=== PATIENT | female | born 1930 | race Caucasian/White ===

== ENCOUNTER 2018-04-13 10:17 | Inpatient (IN) | payer MEDICARE, OTHER ==
[~2018-04-13] VITALS: Ht 157.5 cm; Wt 57.9 kg
[2018-04-13] VITALS (17 sets, daily range): BP systolic 111–155; BP diastolic 49–75
[~2018-04-13 10:17] MED LIST: ALEN35TA32 PO; ASPI81TA52 PO; CIPR-259 PO; DOCU-28 PO; GABA-532 PO; HYDR-3972 PO; ISOS60TA4 PO; LEVO100T9 PO; LOSA50TA3 PO; METR500T PO; OMEP20CA10 PO; SIMV20TA5 PO; WALKERFR TOP; ZOLP10TA5 PO
[2018-04-13 10:47] LABS: BASOPHILS % (AUTO) 0 % (0-1); EOSINOPHILS % (AUTO) 0 % (0-6); HEMATOCRIT 47.9 % (35.0-45.0); HEMOGLOBIN 16.4 g/dl (12.0-16.0); LYMPHOCYTES # (AUTO) 0.5 X10'3 (1.1-4.8); LYMPHOCYTES % (AUTO) 2.3 % (21-51); MEAN CORPUSCULAR HEMOGLOBIN 32.5 PG (27.0-31.0); MEAN CORPUSCULAR HGB CONC 34.1 % (33.0-36.5); MEAN CORPUSCULAR VOLUME 95.3 FL (78-98); MEAN PLATELET VOLUME 9.7 FL (7.4-10.4); MONOCYTES # (AUTO) 1.3 X10'3 (0-0.9); NEUTROPHILS # (AUTO) 20.2 X10'3 (1.8-7.7); NEUTROPHILS % (AUTO) 91.7 % (42-75); PLATELET COUNT 227 X10'3 (140-440); RED BLOOD COUNT 5.03 X10'6 (4.20-5.60); RED CELL DISTRIBUTION WIDTH 14.1 % (11.5-14.5); WHITE BLOOD COUNT 22.1 X10'3 (4.5-11.0)
[2018-04-13] MEDS ORDERED: ondansetron/PF 4mg/2ml inj IV ONE (10:50)
[2018-04-13] MEDS ORDERED: morphine 4 MG/ML inj SYRINge IV PRN ×4 (10:50→16:00)
[2018-04-13] MEDS ORDERED: normal saline 1000ML IV soln IVB ONE (10:50)
[2018-04-13 10:55] LABS: INR 1.1 INR; PROTHROMBIN TIME 11.6 SECONDS (9.0-12.0)
[2018-04-13 11:01] LABS: ALANINE AMINOTRANSFERASE 18 U/L (12-78); ALBUMIN/GLOBULIN RATIO 0.7 (1.1-1.5); ANION GAP 17 (8-16); ASPARTATE AMINO TRANSFERASE 24 U/L (10-37); BILIRUBIN,TOTAL 0.8 MG/DL (0.1-1.0); BLOOD UREA NITROGEN 109 MG/DL (7-18); BUN/CREATININE RATIO 16.9 (6.6-38.0); CALCIUM 8.9 MG/DL (8.5-10.1); CHLORIDE 95 MMOL/L (99-107); CREATININE 6.46 MG/DL (0.40-0.90); GLUCOSE 130 MG/DL (70-104); SODIUM 131 MMOL/L (135-145); TOTAL CARBON DIOXIDE 19.4 MMOL/L (24-32); TOTAL PROTEIN 7.3 G/DL (6.4-8.2); eGFR 6 ML/MIN
[2018-04-13 11:02] LABS: ALKALINE PHOSPHATASE 65 IU/L (46-116)
[2018-04-13 11:05] LABS: LIPASE 210 U/L (73-393)
[2018-04-13] MEDS ORDERED: iohexol 350MG/ML 100ml bottle IV ONE (11:05)
[2018-04-13 11:30] LABS: PLATELET ESTIMATE NORMAL; TOTAL CELLS COUNTED 100; TOXIC GRANULATION 1+; TOXIC VACUOLATION 2+
[2018-04-13] MEDS ORDERED: cefepime 2g/NS 100ml ADVANTAGE 100 ML IV ONE (12:10)
[2018-04-13 12:30] LABS: CLARITY,URINE SLIGHTLY CLOUDY (Clear); COLOR,URINE YELLOW (Yellow); GLUCOSE, URINE NEGATIVE (Neg); KETONES,URINE TRACE mg/dl (Neg); LEUKOCYTE ESTERASE ,URINE NEGATIVE (Neg); NITRITES, URINE NEGATIVE (Neg); OCCULT BLOOD,URINE TRACE-INTACT (Neg); PROTEIN,URINE TRACE mg/dl (Neg); UROBILINOGEN,URINE 0.2 E.U/dL (0.2-1.0)
[2018-04-13 12:32] LABS: UA COLLECTION TYPE CLN CATCH MIDSTREAM
[2018-04-13 12:43] LABS: BACTERIA,URINE FEW /HPF (Neg); MUCUS STRANDS FEW /LPF (Neg); RBC,URINE 0-2 /HPF (0-2); SQUAMOUS EPITHELIAL CELL,UR MANY /LPF (FEW); WBC,URINE 0-4 /HPF (0-4)
[2018-04-13] MEDS ORDERED: [UNRECOGNIZED DRUG - OTHER] PO (12:53)
[2018-04-13] MEDS ORDERED: sevoflurane 250ml liquid IH ONE (13:45)
[2018-04-13 13:56] LABS: OCCULT BLOOD STOOL NEGATIVE (Neg)
[2018-04-13] MEDS ORDERED: morphine 10mg/ml inj. ONE ×2 (13:56→13:57)
[2018-04-13] MEDS ORDERED: midazolam 2 mg/2 ml injection ONE (13:56)
[2018-04-13] MEDS: ringers solution, lacted 1,000 ML IV SCH ×2 (14:58→16:43)
[2018-04-13] MEDS ORDERED: hydrALAZINE 20mg/ml inj. IV PRN (15:00)
[2018-04-13] MEDS ORDERED: fentaNYL/PF 50MCG/1 ML 2ML syringe IV PRN ×3 (15:00→16:10)
[2018-04-13] MEDS ORDERED: ondansetron/PF 4mg/2ml inj IV PRN ×2 (15:00→16:00)
[2018-04-13] MEDS ORDERED: labetalol 20mg/4ml (5mg/ml) syringe IV PRN (15:00)
[2018-04-13] MEDS ORDERED: etomidate 2mg/ml inj. ONE (15:02)
[2018-04-13] MEDS ORDERED: MIDAZolam 5mg/5ml vial ONE (15:02)
[2018-04-13] MEDS ORDERED: rocuronium 10mg/ml inj IV ONE ×2 (15:02)
[2018-04-13] MEDS: sodium chloride 0.45% 1,000 ML IV SCH (15:56)
[2018-04-13] MEDS ORDERED: magnesium hydroxide 30ml (MOM) UD suspension PO PRN (16:00)
[2018-04-13] MEDS ORDERED: acetaminophen 325mg tablet PO PRN ×2 (16:00)
[2018-04-13] MEDS ORDERED: potassium Cl 20 mEq SR tablet PO PRN ×2 (16:00)
[2018-04-13] MEDS ORDERED: midazolam 100mg in NS 100ml 100 ML IV PRN (16:09)
[2018-04-13] MEDS ORDERED: midazolam 2 mg/2 ml injection IV ONE (16:10)
[2018-04-13 16:21] LABS: ABG BASE EXCESS -14.3 mmol/L (-2.0-3.0); ABG HCO3 11.3 mmol/L (22.0-26.0); ABG PCO2 (T) 26.4 mmHg (32.0-45.0); ABG PH (T) 7.251 (7.350-7.450); ABG PO2 (T) 219.7 mmHg (83-108); FCOHb 0.3 % (0.5-1.5); FMetHb 0.4 % (0.3-1.12); FO2Hb 98.3 % (94-100); MINUTE VOLUME 3 L/min; PEEP 5 cm H2O; RESPIRATORY RATE 8 b/min; RESPIRATORY RATE (OBSERVED) 8 b/min; TIDAL VOLUME 450 mL; TOTAL HEMOGLOBIN 11.2 G/dl (12.0-16.0)
[2018-04-13 16:41] LABS: OXYGEN SATURATION (MIXED VEN) 83.7 % (60-80); PO2 MIXED VENOUS (TEMP COR) 54.2 mmHg (35-46)
[2018-04-13] MEDS: pantoprazole 40 MG vial IV SCH (17:06)
[2018-04-13 17:36] LABS: PARTIAL THROMBOPLASTIN TIME 36 SECONDS (22-32)
[2018-04-13 17:43] LABS: ALBUMIN 2.1 G/DL (3.4-5.0); ALBUMIN/GLOBULIN RATIO 0.6 (1.1-1.5); ALKALINE PHOSPHATASE 51 IU/L (46-116); ANION GAP 12 (8-16); ASPARTATE AMINO TRANSFERASE 27 U/L (10-37); BILIRUBIN,TOTAL 0.8 MG/DL (0.1-1.0); BLOOD UREA NITROGEN 98 MG/DL (7-18); CALCIUM 7.2 MG/DL (8.5-10.1); CHLORIDE 102 MMOL/L (99-107); CREATININE 5.15 MG/DL (0.40-0.90); GLUCOSE 134 MG/DL (70-104); MAGNESIUM 1.9 MG/DL (1.5-2.4); PHOSPHORUS 5.4 MG/DL (2.3-4.5); SODIUM 132 MMOL/L (135-145); TOTAL CARBON DIOXIDE 18.2 MMOL/L (24-32); TOTAL PROTEIN 5.4 G/DL (6.4-8.2); eGFR 8 ML/MIN
[2018-04-13 18:02] LABS: ALANINE AMINOTRANSFERASE 16 U/L (12-78)
[2018-04-13 19:25] LABS: ABG OXYGEN SATURATION 98.7 % (95-98); ABG PCO2 (T) 28.3 mmHg (32.0-45.0); ABG PH (T) 7.305 (7.350-7.450); ABG PO2 (T) 132.5 mmHg (83-108); FCOHb 0.3 % (0.5-1.5); FMetHb 0.4 % (0.3-1.12); MINUTE VOLUME 6 L/min; PATIENT TEMPERATURE 35.9; PEEP 5 cm H2O; RESPIRATORY RATE 14 b/min; RESPIRATORY RATE (OBSERVED) 14 b/min; TIDAL VOLUME 400 mL; TOTAL HEMOGLOBIN 15.7 G/dl (12.0-16.0)
[2018-04-13] MEDS: K, MAG and/or Phos replacement - Verify level? MC SCH (19:34)
[2018-04-13] MEDS: FENTANYL-0.9 % NACL/PF 100 ML IV PRN (20:35)
[2018-04-14] VITALS (56 sets, daily range): BP systolic 77–140; BP diastolic 34–65
[2018-04-14] MEDS: NORepinephrine 8mg/ 250ml NS 250 ML IV SCH ×2 (01:35→16:08)
[2018-04-14] MEDS: levoFLOXACIN-Levaquin 250mg/D5 50 ML IV SCH ×2 (02:00)
[2018-04-14 02:46] LABS: BASOPHILS % (AUTO) 0.1 % (0-1); EOSINOPHILS % (AUTO) 0.2 % (0-6); HEMATOCRIT 43.3 % (35.0-45.0); HEMOGLOBIN 14.7 g/dl (12.0-16.0); LYMPHOCYTES # (AUTO) 0.5 X10'3 (1.1-4.8); LYMPHOCYTES % (AUTO) 3.8 % (21-51); MEAN CORPUSCULAR HEMOGLOBIN 32.8 PG (27.0-31.0); MEAN CORPUSCULAR VOLUME 96.4 FL (78-98); MEAN PLATELET VOLUME 9.8 FL (7.4-10.4); MONOCYTES # (AUTO) 0.5 X10'3 (0-0.9); NEUTROPHILS # (AUTO) 12.1 X10'3 (1.8-7.7); NEUTROPHILS % (AUTO) 91.9 % (42-75); PLATELET COUNT 207 X10'3 (140-440); RED BLOOD COUNT 4.49 X10'6 (4.20-5.60); RED CELL DISTRIBUTION WIDTH 14.7 % (11.5-14.5); WHITE BLOOD COUNT 13.1 X10'3 (4.5-11.0)
[2018-04-14 02:59] LABS: ALANINE AMINOTRANSFERASE 15 U/L (12-78); ALBUMIN 1.9 G/DL (3.4-5.0); ALBUMIN/GLOBULIN RATIO 0.6 (1.1-1.5); ALKALINE PHOSPHATASE 49 IU/L (46-116); ANION GAP 18 (8-16); ASPARTATE AMINO TRANSFERASE 20 U/L (10-37); BILIRUBIN,TOTAL 0.6 MG/DL (0.1-1.0); BLOOD UREA NITROGEN 97 MG/DL (7-18); BUN/CREATININE RATIO 17.5 (6.6-38.0); CALCIUM 7.3 MG/DL (8.5-10.1); CHLORIDE 101 MMOL/L (99-107); CREATININE 5.55 MG/DL (0.40-0.90); GLUCOSE 111 MG/DL (70-104); MAGNESIUM 1.7 MG/DL (1.5-2.4); PHOSPHORUS 5.2 MG/DL (2.3-4.5); SODIUM 133 MMOL/L (135-145); TOTAL PROTEIN 5.1 G/DL (6.4-8.2); eGFR 7 ML/MIN
[2018-04-14 03:01] LABS: TOTAL CARBON DIOXIDE 14.3 MMOL/L (24-32)
[2018-04-14] MEDS ORDERED: fluconazole-Diflucan 100MG/NS 50 ML IV ONE (03:12)
[2018-04-14 03:37] LABS: INR 1.2 INR; PARTIAL THROMBOPLASTIN TIME 38 SECONDS (22-32); PROTHROMBIN TIME 12.5 SECONDS (9.0-12.0)
[2018-04-14] MEDS: fluconazole-Diflucan 100MG/NS 50 ML IV SCH (03:37)
[2018-04-14 03:46] LABS: ABG BASE EXCESS -10.9 mmol/L (-2.0-3.0); ABG HCO3 13.1 mmol/L (22.0-26.0); ABG OXYGEN SATURATION 97.4 % (95-98); ABG PCO2 (T) 25.3 mmHg (32.0-45.0); ABG PH (T) 7.331 (7.350-7.450); ABG PO2 (T) 93.5 mmHg (83-108); FCOHb 0.3 % (0.5-1.5); FMetHb 0.3 % (0.3-1.12); FO2Hb 96.8 % (94-100); MINUTE VOLUME 7 L/min; PATIENT TEMPERATURE 36.8; PEEP 5 cm H2O; RESPIRATORY RATE 16 b/min; RESPIRATORY RATE (OBSERVED) 16 b/min; TIDAL VOLUME 450 mL; TOTAL HEMOGLOBIN 15.5 G/dl (12.0-16.0)
[2018-04-14] MEDS: sodium chloride 0.45% 1,000 ML IV SCH (05:44)
[2018-04-14] MEDS: K, MAG and/or Phos replacement - Verify level? MC SCH (06:39)
[2018-04-14] MEDS: lactobacillus rhamnosus 10,000 MMU CELLS/CAPSULE PO SCH ×3 (07:37→22:20)
[2018-04-14] MEDS: pantoprazole 40 MG vial IV SCH (07:39)
[2018-04-14 09:31] LABS: TOTAL PROTEIN,URINE RANDOM 36.2 MG/DL
[2018-04-14] MEDS ORDERED: CIPR500T5 PO (09:41)
[2018-04-14] MEDS ORDERED: METR500T4 PO (09:41)
[2018-04-14] MEDS: normal saline 1000ml 1,000 ML IV SCH ×2 (10:25→22:25)
[2018-04-14] MEDS ORDERED: vancomycin/NS 1 GM ADD-VANTAGE 250 ML IV ONE (10:25)
[2018-04-14] MEDS ORDERED: Dextrose 10%-water IV solution 1,000 ML IV PRN (14:09)
[2018-04-14] MEDS ORDERED: sodium phosphate inj. 15 MMOL in dextrose 5%-water 150 ML IV PRN (14:13)
[2018-04-14] MEDS ORDERED: sodium phosphate inj. 30 MMOL in dextrose 5%-water 250 ML IV PRN (14:13)
[2018-04-14] MEDS ORDERED: magnesium/D5W IVPB 100 ML IV PRN (14:15)
[2018-04-14] MEDS ORDERED: magnesium Cl slow-release 64mg tablet PO PRN (14:15)
[2018-04-14] MEDS ORDERED: Neutra Phos packet PO PRN (14:15)
[2018-04-14] MEDS ORDERED: potassium Cl 40MEQ/NS 500ml 500 ML IV PRN ×2 (14:15)
[2018-04-14] MEDS ORDERED: magnesium 4gm in 100ml NS 100 ML IV PRN (14:15)
[2018-04-14] MEDS ORDERED: potassium Cl 40MEQ/250ML bag 250 ML IV PRN ×2 (14:15)
[2018-04-14] MEDS ORDERED: potassium Cl 20 mEq SR tablet PO PRN ×2 (14:15)
[2018-04-14 17:47] LABS: ALANINE AMINOTRANSFERASE 24 U/L (12-78); ALBUMIN 1.9 G/DL (3.4-5.0); ALBUMIN/GLOBULIN RATIO 0.5 (1.1-1.5); ALKALINE PHOSPHATASE 58 IU/L (46-116); ANION GAP 24 (8-16); ASPARTATE AMINO TRANSFERASE 79 U/L (10-37); BILIRUBIN,TOTAL 0.6 MG/DL (0.1-1.0); BLOOD UREA NITROGEN 96 MG/DL (7-18); BUN/CREATININE RATIO 14.8 (6.6-38.0); CALCIUM 7.5 MG/DL (8.5-10.1); CHLORIDE 101 MMOL/L (99-107); CREATININE 6.47 MG/DL (0.40-0.90); GLUCOSE 118 MG/DL (70-104); MAGNESIUM 1.9 MG/DL (1.5-2.4); PHOSPHORUS 8.1 MG/DL (2.3-4.5); POTASSIUM 5.8 MMOL/L (3.5-5.1); PREALBUMIN 12.8 MG/DL (19-36); SODIUM 133 MMOL/L (135-145); TOTAL PROTEIN 5.5 G/DL (6.4-8.2); TRIGLYCERIDES 106 MG/DL (20-135); eGFR 6 ML/MIN
[2018-04-14 17:58] LABS: TOTAL CARBON DIOXIDE 8.5 MMOL/L (24-32)
[2018-04-14 18:51] LABS: ABG BASE EXCESS -22.1 mmol/L (-2.0-3.0); ABG HCO3 4.5 mmol/L (22.0-26.0); ABG OXYGEN SATURATION 97.3 % (95-98); ABG PCO2 (T) 14.1 mmHg (32.0-45.0); ABG PH (T) 7.124 (7.350-7.450); ABG PO2 (T) 113.4 mmHg (83-108); FCOHb 0.2 % (0.5-1.5); FMetHb 0.5 % (0.3-1.12); FO2Hb 96.6 % (94-100); MINUTE VOLUME 16 L/min; PATIENT TEMPERATURE 37.7; PEEP 5 cm H2O; RESPIRATORY RATE 16 b/min; RESPIRATORY RATE (OBSERVED) 33 b/min; TIDAL VOLUME 400 mL; TOTAL HEMOGLOBIN 15.7 G/dl (12.0-16.0)
[2018-04-14] MEDS: sodium bicarbonate (8.4%) inj. 150 MEQ in dextrose 5%-water 1,000 ML IV SCH (20:51)
[2018-04-14] MEDS ORDERED: vasopressin inj. 60 UNIT in normal saline 100ml IV soln 97 ML IV SCH (21:50)
[2018-04-14] MEDS: metroNIDAZOLE-Flagyl 500mg/NS 100 ML IV SCH (22:20)
[2018-04-14] MEDS: mineral oil/petrolatum ophthal oint EACHEYE SCH (22:20)
[2018-04-14] MEDS: fat emulsion IV 100 ML, MVI, adult No.4 with vit. K 10 ML, Trace element-5 inj. 1 ML in... IV SCH ×4 (22:25)
[2018-04-14] MEDS: normal saline 500ml IV soln 1,000 ML IV SCH ×3 (22:25→23:50)
[2018-04-15] VITALS (38 sets, daily range): BP systolic 66–148; BP diastolic 33–61
[2018-04-15] MEDS: normal saline 500ml IV soln 1,000 ML IV SCH (00:50)
[2018-04-15] MEDS: fluconazole-Diflucan 100MG/NS 50 ML IV SCH ×2 (01:13→20:51)
[2018-04-15] MEDS: mineral oil/petrolatum ophthal oint EACHEYE SCH ×4 (01:41→19:37)
[2018-04-15 03:19] LABS: BASOPHILS % (AUTO) 0 % (0-1); EOSINOPHILS % (AUTO) 0 % (0-6); HEMATOCRIT 40.2 % (35.0-45.0); HEMOGLOBIN 13.3 g/dl (12.0-16.0); LYMPHOCYTES # (AUTO) 0.7 X10'3 (1.1-4.8); LYMPHOCYTES % (AUTO) 2.2 % (21-51); MEAN CORPUSCULAR HEMOGLOBIN 32.7 PG (27.0-31.0); MEAN CORPUSCULAR HGB CONC 33.1 % (33.0-36.5); MEAN CORPUSCULAR VOLUME 98.6 FL (78-98); MEAN PLATELET VOLUME 9.6 FL (7.4-10.4); MONOCYTES # (AUTO) 1.1 X10'3 (0-0.9); MONOCYTES % (AUTO) 3.8 % (2-12); NEUTROPHILS # (AUTO) 27.9 X10'3 (1.8-7.7); PLATELET COUNT 186 X10'3 (140-440); RED BLOOD COUNT 4.08 X10'6 (4.20-5.60); RED CELL DISTRIBUTION WIDTH 15.6 % (11.5-14.5)
[2018-04-15 03:28] LABS: INR 1.9 INR; PARTIAL THROMBOPLASTIN TIME 50 SECONDS (22-32); PROTHROMBIN TIME 19.3 SECONDS (9.0-12.0)
[2018-04-15 03:35] LABS: WHITE BLOOD COUNT 29.6 X10'3 (4.5-11.0)
[2018-04-15 03:43] LABS: ALBUMIN 1.6 G/DL (3.4-5.0); ALBUMIN/GLOBULIN RATIO 0.5 (1.1-1.5); ALKALINE PHOSPHATASE 94 IU/L (46-116); ANION GAP 23 (8-16); BILIRUBIN,TOTAL 0.7 MG/DL (0.1-1.0); BLOOD UREA NITROGEN 97 MG/DL (7-18); BUN/CREATININE RATIO 14.4 (6.6-38.0); CALCIUM 6.6 MG/DL (8.5-10.1); CHLORIDE 100 MMOL/L (99-107); CREATININE 6.75 MG/DL (0.40-0.90); GLUCOSE 208 MG/DL (70-104); MAGNESIUM 2.1 MG/DL (1.5-2.4); PREALBUMIN 10.4 MG/DL (19-36); SODIUM 131 MMOL/L (135-145); TOTAL PROTEIN 4.7 G/DL (6.4-8.2); TRIGLYCERIDES 110 MG/DL (20-135); eGFR 6 ML/MIN
[2018-04-15 03:48] LABS: PHOSPHORUS 9.9 MG/DL (2.3-4.5)
[2018-04-15 03:50] LABS: POTASSIUM 6.6 MMOL/L (3.5-5.1); TOTAL CARBON DIOXIDE 8.1 MMOL/L (24-32)
[2018-04-15 04:01] LABS: TOTAL CELLS COUNTED 100
[2018-04-15 04:02] LABS: ANISOCYTOSIS 1+; PLATELET ESTIMATE NORMAL
[2018-04-15 04:37] LABS: ASPARTATE AMINO TRANSFERASE 2822 U/L (10-37)
[2018-04-15 04:38] LABS: ALANINE AMINOTRANSFERASE 544 U/L (12-78)
[2018-04-15 04:46] LABS: ABG BASE EXCESS -18.7 mmol/L (-2.0-3.0); ABG HCO3 6.8 mmol/L (22.0-26.0); ABG OXYGEN SATURATION 97.5 % (95-98); ABG PH (T) 7.216 (7.350-7.450); ABG PO2 (T) 107.5 mmHg (83-108); ALLEN'S TEST Positive; FCOHb 0.2 % (0.5-1.5); FMetHb 0.4 % (0.3-1.12); FO2Hb 96.9 % (94-100); MINUTE VOLUME 12 L/min; PATIENT TEMPERATURE 36.7; PEEP 5 cm H2O; RESPIRATORY RATE 16 b/min; RESPIRATORY RATE (OBSERVED) 27 b/min; TIDAL VOLUME 400 mL; TOTAL HEMOGLOBIN 14.2 G/dl (12.0-16.0)
[2018-04-15] MEDS: sodium bicarbonate (8.4%) inj. 150 MEQ in dextrose 5%-water 1,000 ML IV SCH (07:37)
[2018-04-15] MEDS: metroNIDAZOLE-Flagyl 500mg/NS 100 ML IV SCH ×2 (07:37→19:37)
[2018-04-15] MEDS: pantoprazole 40 MG vial IV SCH (07:37)
[2018-04-15] MEDS: NORepinephrine 8mg/ 250ml NS 250 ML IV SCH ×2 (07:54→19:36)
[2018-04-15] MEDS ORDERED: calcium chloride inj. 10,000 MG in normal saline 500ml IV soln 400 ML IV PRN ×2 (09:10→10:37)
[2018-04-15] MEDS ORDERED: magnesium 4gm in 100ml NS 100 ML IV PRN (09:10)
[2018-04-15] MEDS ORDERED: calcium chloride inj. 1,000 MG in normal saline 100ml IV soln 100 ML IV PRN (09:10)
[2018-04-15] MEDS ORDERED: CALCIUM GLUCONATE IV PRN (10:10)
[2018-04-15] MEDS ORDERED: NS IV PRN (10:10)
[2018-04-15] MEDS ORDERED: dextrose 50%-water 50ml dispensing syringe IV PRN ×2 (10:25)
[2018-04-15] MEDS ORDERED: glucagon, human recombinant 1mg kit SUBCUT PRN (10:25)
[2018-04-15] MEDS ORDERED: dextrose ORAL solution 15 GM/59 ML bottle PO PRN ×2 (10:25)
[2018-04-15] MEDS ORDERED: MESSAGE TO PHARMACY PO ONE (10:25)
[2018-04-15] MEDS ORDERED: insulin Lispro (HumaLOG) vial - multi-dose SQ SCH (10:25)
[2018-04-15] MEDS: K, MAG and/or Phos replacement - Verify level? MC SCH (10:28)
[2018-04-15] MEDS: lactobacillus rhamnosus 10,000 MMU CELLS/CAPSULE PO SCH ×2 (10:28→19:41)
[2018-04-15] MEDS: citrate dextrose 1000ml IV sol 1,000 ML IV PRN ×3 (10:29→21:07)
[2018-04-15] MEDS: Duosol 4k/NO Calcium 5,000 ML HE SCH ×5 (10:32→18:03)
[2018-04-15 10:41] LABS: ABG BASE EXCESS -14.2 mmol/L (-2.0-3.0); ABG HCO3 10.1 mmol/L (22.0-26.0); ABG OXYGEN SATURATION 96.1 % (95-98); ABG PCO2 (T) 21.4 mmHg (32.0-45.0); ABG PH (T) 7.293 (7.350-7.450); ABG PO2 (T) 83.9 mmHg (83-108); FCOHb 0.3 % (0.5-1.5); FMetHb 0.3 % (0.3-1.12); FO2Hb 95.5 % (94-100); MINUTE VOLUME 10 L/min; PEEP 5 cm H2O; RESPIRATORY RATE 16 b/min; RESPIRATORY RATE (OBSERVED) 24 b/min; TIDAL VOLUME 400 mL; TOTAL HEMOGLOBIN 14.2 G/dl (12.0-16.0)
[2018-04-15] MEDS: albumin (human) 25% 100 ML IV solution IV SCH ×2 (10:42→16:08)
[2018-04-15] MEDS ORDERED: vancomycin/NS 1 GM ADD-VANTAGE 250 ML IV PRN (12:50)
[2018-04-15] MEDS ORDERED: VANCOMYCIN LEVEL IV ONE (12:55)
[2018-04-15 13:26] LABS: HEMATOCRIT 32.3 % (35.0-45.0); HEMOGLOBIN 11.1 g/dl (12.0-16.0); MEAN CORPUSCULAR HGB CONC 34.3 % (33.0-36.5); MEAN PLATELET VOLUME 8.9 FL (7.4-10.4); PLATELET COUNT 120 X10'3 (140-440); RED BLOOD COUNT 3.37 X10'6 (4.20-5.60); RED CELL DISTRIBUTION WIDTH 14.8 % (11.5-14.5)
[2018-04-15 13:30] LABS: WHITE BLOOD COUNT 30.4 X10'3 (4.5-11.0)
[2018-04-15 13:35] LABS: ALBUMIN 2.6 G/DL (3.4-5.0); ANION GAP 16 (8-16); BLOOD UREA NITROGEN 90 MG/DL (7-18); BUN/CREATININE RATIO 15.7 (6.6-38.0); CALCIUM 6.3 MG/DL (8.5-10.1); CHLORIDE 100 MMOL/L (99-107); CREATININE 5.74 MG/DL (0.40-0.90); GLUCOSE 257 MG/DL (70-104); PHOSPHORUS 6.6 MG/DL (2.3-4.5); POTASSIUM 4.9 MMOL/L (3.5-5.1); SODIUM 130 MMOL/L (135-145); eGFR 7 ML/MIN
[2018-04-15 13:37] LABS: TOTAL CARBON DIOXIDE 13.7 MMOL/L (24-32)
[2018-04-15 13:44] LABS: HEMOGLOBIN A1C 5.9 % (4.5-6.2)
[2018-04-15] MEDS: normal saline 1000ml 1,000 ML IV SCH (13:50)
[2018-04-15 13:51] LABS: NUCLEATED RED BLOOD CELLS 1 /100WBC (0-0); TOTAL CELLS COUNTED 100
[2018-04-15 13:52] LABS: ANISOCYTOSIS 1+; PLATELET ESTIMATE DECREASED
[2018-04-15] MEDS: hydrocortisone sod succ/PF 100mg/2ml inj. IV SCH ×2 (14:12→19:39)
[2018-04-15] MEDS: insulin regular, human vial - multi-dose SQ SCH ×2 (14:15→19:32)
[2018-04-15 14:33] LABS: HEMATOCRIT 32.4 % (35.0-45.0); HEMOGLOBIN 11.1 g/dl (12.0-16.0); MEAN CORPUSCULAR HEMOGLOBIN 32.7 PG (27.0-31.0); MEAN CORPUSCULAR HGB CONC 34.2 % (33.0-36.5); MEAN CORPUSCULAR VOLUME 95.4 FL (78-98); PLATELET COUNT 125 X10'3 (140-440); RED BLOOD COUNT 3.39 X10'6 (4.20-5.60); RED CELL DISTRIBUTION WIDTH 15.2 % (11.5-14.5)
[2018-04-15 14:37] LABS: WHITE BLOOD COUNT 30.6 X10'3 (4.5-11.0)
[2018-04-15 14:45] LABS: ALBUMIN 2.7 G/DL (3.4-5.0); ANION GAP 17 (8-16); BLOOD UREA NITROGEN 88 MG/DL (7-18); CALCIUM 6.5 MG/DL (8.5-10.1); CHLORIDE 100 MMOL/L (99-107); CREATININE 5.49 MG/DL (0.40-0.90); GLUCOSE 263 MG/DL (70-104); PHOSPHORUS 6.2 MG/DL (2.3-4.5); POTASSIUM 4.9 MMOL/L (3.5-5.1); SODIUM 132 MMOL/L (135-145); TOTAL CARBON DIOXIDE 15.4 MMOL/L (24-32); eGFR 7 ML/MIN
[2018-04-15 14:47] LABS: TOTAL CELLS COUNTED 100
[2018-04-15 14:48] LABS: ANISOCYTOSIS 1+; PLATELET ESTIMATE DECREASED
[2018-04-15 15:15] LABS: BASOPHILS % (AUTO) 0.1 % (0-1); EOSINOPHILS % (AUTO) 0.1 % (0-6); HEMATOCRIT 32.7 % (35.0-45.0); LYMPHOCYTES # (AUTO) 0.4 X10'3 (1.1-4.8); LYMPHOCYTES % (AUTO) 1.2 % (21-51); MEAN CORPUSCULAR HEMOGLOBIN 32.6 PG (27.0-31.0); MEAN CORPUSCULAR HGB CONC 33.7 % (33.0-36.5); MEAN CORPUSCULAR VOLUME 96.7 FL (78-98); MEAN PLATELET VOLUME 8.9 FL (7.4-10.4); MONOCYTES # (AUTO) 0.7 X10'3 (0-0.9); MONOCYTES % (AUTO) 2.1 % (2-12); NEUTROPHILS % (AUTO) 96.5 % (42-75); PLATELET COUNT 121 X10'3 (140-440); RED BLOOD COUNT 3.38 X10'6 (4.20-5.60); RED CELL DISTRIBUTION WIDTH 14.9 % (11.5-14.5)
[2018-04-15 15:18] LABS: WHITE BLOOD COUNT 31.1 X10'3 (4.5-11.0)
[2018-04-15 15:29] LABS: ALBUMIN 2.6 G/DL (3.4-5.0); ANION GAP 16 (8-16); BLOOD UREA NITROGEN 83 MG/DL (7-18); BUN/CREATININE RATIO 16.5 (6.6-38.0); CALCIUM 6.5 MG/DL (8.5-10.1); CHLORIDE 100 MMOL/L (99-107); CREATININE 5.03 MG/DL (0.40-0.90); GLUCOSE 272 MG/DL (70-104); PHOSPHORUS 5.7 MG/DL (2.3-4.5); POTASSIUM 4.7 MMOL/L (3.5-5.1); SODIUM 132 MMOL/L (135-145); TOTAL CARBON DIOXIDE 16.1 MMOL/L (24-32); eGFR 8 ML/MIN
[2018-04-15 15:57] LABS: VANCOMYCIN,RANDOM 9.8 UG/ML
[2018-04-15 16:19] LABS: BASOPHILS % (AUTO) 0.1 % (0-1); EOSINOPHILS % (AUTO) 0.1 % (0-6); HEMATOCRIT 32.5 % (35.0-45.0); LYMPHOCYTES # (AUTO) 0.4 X10'3 (1.1-4.8); LYMPHOCYTES % (AUTO) 1.3 % (21-51); MEAN CORPUSCULAR HEMOGLOBIN 32.5 PG (27.0-31.0); MEAN CORPUSCULAR HGB CONC 33.8 % (33.0-36.5); MEAN CORPUSCULAR VOLUME 96.3 FL (78-98); MEAN PLATELET VOLUME 8.8 FL (7.4-10.4); MONOCYTES # (AUTO) 0.5 X10'3 (0-0.9); MONOCYTES % (AUTO) 1.7 % (2-12); NEUTROPHILS # (AUTO) 31.5 X10'3 (1.8-7.7); NEUTROPHILS % (AUTO) 96.8 % (42-75); PLATELET COUNT 119 X10'3 (140-440); RED BLOOD COUNT 3.37 X10'6 (4.20-5.60); RED CELL DISTRIBUTION WIDTH 15.2 % (11.5-14.5)
[2018-04-15 16:36] LABS: ALBUMIN 2.5 G/DL (3.4-5.0); ANION GAP 15 (8-16); BLOOD UREA NITROGEN 79 MG/DL (7-18); BUN/CREATININE RATIO 16.4 (6.6-38.0); CALCIUM 6.5 MG/DL (8.5-10.1); CHLORIDE 100 MMOL/L (99-107); CREATININE 4.83 MG/DL (0.40-0.90); GLUCOSE 277 MG/DL (70-104); PHOSPHORUS 5.3 MG/DL (2.3-4.5); POTASSIUM 4.6 MMOL/L (3.5-5.1); SODIUM 133 MMOL/L (135-145); TOTAL CARBON DIOXIDE 17.6 MMOL/L (24-32); eGFR 9 ML/MIN
[2018-04-15 16:45] LABS: WHITE BLOOD COUNT 32.5 X10'3 (4.5-11.0)
[2018-04-15] MEDS ORDERED: vancomycin/NS 1 GM ADD-VANTAGE 250 ML IV ONE (17:00)
[2018-04-15] MEDS: FENTANYL-0.9 % NACL/PF 100 ML IV PRN (17:45)
[2018-04-15] MEDS: insulin glargine (Lantus) pen - multi-dose SQ SCH (19:33)
[2018-04-15] MEDS: fat emulsion IV 100 ML, MVI, adult No.4 with vit. K 10 ML, Trace element-5 inj. 1 ML in... IV SCH ×4 (20:52)
[2018-04-15] MEDS: levoFLOXACIN-Levaquin 250mg/D5 50 ML IV SCH (21:27)
[2018-04-15 22:31] LABS: HEMATOCRIT 32.9 % (35.0-45.0); HEMOGLOBIN 11.2 g/dl (12.0-16.0); MEAN CORPUSCULAR HEMOGLOBIN 32.8 PG (27.0-31.0); MEAN CORPUSCULAR VOLUME 96.4 FL (78-98); MEAN PLATELET VOLUME 8.3 FL (7.4-10.4); PLATELET COUNT 105 X10'3 (140-440); RED BLOOD COUNT 3.42 X10'6 (4.20-5.60)
[2018-04-15 22:33] LABS: WHITE BLOOD COUNT 35.8 X10'3 (4.5-11.0)
[2018-04-15 22:55] LABS: ALBUMIN 3.2 G/DL (3.4-5.0); ALBUMIN/GLOBULIN RATIO 1.5 (1.1-1.5); ALKALINE PHOSPHATASE 196 IU/L (46-116); ANION GAP 15 (8-16); BILIRUBIN,TOTAL 1.7 MG/DL (0.1-1.0); BLOOD UREA NITROGEN 57 MG/DL (7-18); BUN/CREATININE RATIO 16.1 (6.6-38.0); CALCIUM 9.4 MG/DL (8.5-10.1); CHLORIDE 101 MMOL/L (99-107); CREATININE 3.53 MG/DL (0.40-0.90); GLUCOSE 235 MG/DL (70-104); MAGNESIUM 1.7 MG/DL (1.5-2.4); SODIUM 136 MMOL/L (135-145); TOTAL CARBON DIOXIDE 20.5 MMOL/L (24-32); TOTAL PROTEIN 5.4 G/DL (6.4-8.2); eGFR 12 ML/MIN
[2018-04-16] VITALS (24 sets, daily range): BP systolic 91–128; BP diastolic 43–58
[2018-04-16 00:09] LABS: ALANINE AMINOTRANSFERASE 1694 U/L (12-78); ASPARTATE AMINO TRANSFERASE > 7000 U/L (10-37)
[2018-04-16] MEDS: Duosol 4k/NO Calcium 5,000 ML HE SCH ×7 (01:51→20:13)
[2018-04-16] MEDS: albumin (human) 25% 100 ML IV solution IV SCH ×4 (01:54→23:39)
[2018-04-16] MEDS: mineral oil/petrolatum ophthal oint EACHEYE SCH ×4 (01:54→19:30)
[2018-04-16] MEDS: VANCOMYCIN LEVEL IV SCH (02:09)
[2018-04-16] MEDS: hydrocortisone sod succ/PF 100mg/2ml inj. IV SCH ×4 (02:18→19:30)
[2018-04-16] MEDS: citrate dextrose 1000ml IV sol 1,000 ML IV PRN ×5 (02:22→22:36)
[2018-04-16] MEDS: insulin regular, human vial - multi-dose SQ SCH ×4 (02:22→19:35)
[2018-04-16] MEDS: NS IV PRN ×2 (02:29→16:31)
[2018-04-16] MEDS: CALCIUM GLUCONATE IV PRN ×2 (02:29→16:31)
[2018-04-16 03:46] LABS: ABG BASE EXCESS -3.5 mmol/L (-2.0-3.0); ABG HCO3 20.2 mmol/L (22.0-26.0); ABG OXYGEN SATURATION 97.4 % (95-98); ABG PCO2 (T) 30.3 mmHg (32.0-45.0); ABG PH (T) 7.437 (7.350-7.450); FCOHb 0.3 % (0.5-1.5); FMetHb 0.2 % (0.3-1.12); FO2Hb 96.9 % (94-100); MINUTE VOLUME 8 L/min; PEEP 5 cm H2O; RESPIRATORY RATE 16 b/min; RESPIRATORY RATE (OBSERVED) 16 b/min; TIDAL VOLUME 400 mL; TOTAL HEMOGLOBIN 10.8 G/dl (12.0-16.0)
[2018-04-16 04:50] LABS: BASOPHILS % (AUTO) 0 % (0-1); EOSINOPHILS % (AUTO) 0 % (0-6); HEMATOCRIT 29.3 % (35.0-45.0); INR 2.6 INR; LYMPHOCYTES # (AUTO) 0.3 X10'3 (1.1-4.8); LYMPHOCYTES % (AUTO) 0.7 % (21-51); MEAN CORPUSCULAR HGB CONC 34.1 % (33.0-36.5); MEAN CORPUSCULAR VOLUME 96.7 FL (78-98); MEAN PLATELET VOLUME 9.2 FL (7.4-10.4); MONOCYTES # (AUTO) 0.6 X10'3 (0-0.9); MONOCYTES % (AUTO) 1.6 % (2-12); NEUTROPHILS # (AUTO) 34.8 X10'3 (1.8-7.7); NEUTROPHILS % (AUTO) 97.7 % (42-75); PLATELET COUNT 88 X10'3 (140-440); PROTHROMBIN TIME 26.2 SECONDS (9.0-12.0); RED BLOOD COUNT 3.03 X10'6 (4.20-5.60); RED CELL DISTRIBUTION WIDTH 14.8 % (11.5-14.5)
[2018-04-16 04:54] LABS: PARTIAL THROMBOPLASTIN TIME 77 SECONDS (22-32)
[2018-04-16 04:56] LABS: WHITE BLOOD COUNT 35.6 X10'3 (4.5-11.0)
[2018-04-16 05:07] LABS: ALBUMIN 3.6 G/DL (3.4-5.0); ALKALINE PHOSPHATASE 179 IU/L (46-116); ANION GAP 12 (8-16); BLOOD UREA NITROGEN 43 MG/DL (7-18); BUN/CREATININE RATIO 15.7 (6.6-38.0); CALCIUM 9.5 MG/DL (8.5-10.1); CHLORIDE 102 MMOL/L (99-107); CREATININE 2.74 MG/DL (0.40-0.90); GLUCOSE 178 MG/DL (70-104); MAGNESIUM 1.6 MG/DL (1.5-2.4); PHOSPHORUS 2.4 MG/DL (2.3-4.5); SODIUM 137 MMOL/L (135-145); TOTAL CARBON DIOXIDE 22.7 MMOL/L (24-32); TOTAL PROTEIN 5.4 G/DL (6.4-8.2); VANCOMYCIN,RANDOM 16.2 UG/ML; eGFR 16 ML/MIN
[2018-04-16 05:12] LABS: ALANINE AMINOTRANSFERASE 1340 U/L (12-78)
[2018-04-16 05:36] LABS: ASPARTATE AMINO TRANSFERASE 5909 U/L (10-37)
[2018-04-16] MEDS: K, MAG and/or Phos replacement - Verify level? MC SCH (06:43)
[2018-04-16 07:26] LABS: PLATELET ESTIMATE DECREASED; TOTAL CELLS COUNTED 100
[2018-04-16 07:28] LABS: ANISOCYTOSIS FEW; BURR CELLS 1+; TOXIC GRANULATION 2+; TOXIC VACUOLATION FEW
[2018-04-16 07:29] LABS: NUCLEATED RED BLOOD CELLS 1 /100WBC (0-0)
[2018-04-16] MEDS: pantoprazole 40 MG vial IV SCH (07:30)
[2018-04-16] MEDS: metroNIDAZOLE-Flagyl 500mg/NS 100 ML IV SCH ×2 (07:31→19:29)
[2018-04-16] MEDS: lactobacillus rhamnosus 10,000 MMU CELLS/CAPSULE PO SCH ×2 (07:37→19:31)
[2018-04-16] MEDS ORDERED: CALCIUM GLUCONATE IV PRN (10:10)
[2018-04-16] MEDS ORDERED: NS IV PRN (10:10)
[2018-04-16 10:14] LABS: HEMOGLOBIN 9.6 g/dl (12.0-16.0); MEAN CORPUSCULAR HEMOGLOBIN 33.1 PG (27.0-31.0); MEAN CORPUSCULAR HGB CONC 34.5 % (33.0-36.5); MEAN CORPUSCULAR VOLUME 96.1 FL (78-98); MEAN PLATELET VOLUME 8.5 FL (7.4-10.4); PLATELET COUNT 80 X10'3 (140-440); RED BLOOD COUNT 2.91 X10'6 (4.20-5.60); RED CELL DISTRIBUTION WIDTH 15.2 % (11.5-14.5)
[2018-04-16 10:29] LABS: WHITE BLOOD COUNT 34.7 X10'3 (4.5-11.0)
[2018-04-16 10:34] LABS: ALBUMIN 4.1 G/DL (3.4-5.0); ALBUMIN/GLOBULIN RATIO 2.4 (1.1-1.5); ALKALINE PHOSPHATASE 172 IU/L (46-116); ANION GAP 11 (8-16); BILIRUBIN,TOTAL 2.2 MG/DL (0.1-1.0); BLOOD UREA NITROGEN 35 MG/DL (7-18); BUN/CREATININE RATIO 15.5 (6.6-38.0); CALCIUM 10.3 MG/DL (8.5-10.1); CHLORIDE 100 MMOL/L (99-107); CREATININE 2.26 MG/DL (0.40-0.90); GLUCOSE 164 MG/DL (70-104); MAGNESIUM 3.1 MG/DL (1.5-2.4); POTASSIUM 3.8 MMOL/L (3.5-5.1); SODIUM 136 MMOL/L (135-145); TOTAL CARBON DIOXIDE 25.1 MMOL/L (24-32); TOTAL PROTEIN 5.8 G/DL (6.4-8.2); eGFR 21 ML/MIN
[2018-04-16 10:46] LABS: ALANINE AMINOTRANSFERASE 1139 U/L (12-78); ASPARTATE AMINO TRANSFERASE 5054 U/L (10-37)
[2018-04-16] MEDS: potassium Cl 20mEq/100mL bag 100 ML IV PRN ×2 (11:30→12:32)
[2018-04-16] MEDS: fat emulsion IV 100 ML, MVI, adult No.4 with vit. K 10 ML, Trace element-5 inj. 1 ML in... IV SCH ×4 (13:34)
[2018-04-16 16:23] LABS: HEMATOCRIT 29.6 % (35.0-45.0); HEMOGLOBIN 10.2 g/dl (12.0-16.0); MEAN CORPUSCULAR HEMOGLOBIN 32.9 PG (27.0-31.0); MEAN CORPUSCULAR HGB CONC 34.4 % (33.0-36.5); MEAN CORPUSCULAR VOLUME 95.6 FL (78-98); MEAN PLATELET VOLUME 8.4 FL (7.4-10.4); PLATELET COUNT 75 X10'3 (140-440); RED CELL DISTRIBUTION WIDTH 15.1 % (11.5-14.5)
[2018-04-16 16:27] LABS: WHITE BLOOD COUNT 37.2 X10'3 (4.5-11.0)
[2018-04-16 16:37] LABS: PARTIAL THROMBOPLASTIN TIME 77 SECONDS (22-32)
[2018-04-16 16:49] LABS: ALBUMIN 4.3 G/DL (3.4-5.0); ALBUMIN/GLOBULIN RATIO 2.4 (1.1-1.5); ALKALINE PHOSPHATASE 190 IU/L (46-116); ANION GAP 14 (8-16); BILIRUBIN,TOTAL 2.3 MG/DL (0.1-1.0); BLOOD UREA NITROGEN 30 MG/DL (7-18); BUN/CREATININE RATIO 16.3 (6.6-38.0); CALCIUM 9.9 MG/DL (8.5-10.1); CHLORIDE 99 MMOL/L (99-107); CREATININE 1.84 MG/DL (0.40-0.90); GLUCOSE 166 MG/DL (70-104); MAGNESIUM 2.3 MG/DL (1.5-2.4); POTASSIUM 4.4 MMOL/L (3.5-5.1); SODIUM 137 MMOL/L (135-145); TOTAL CARBON DIOXIDE 23.8 MMOL/L (24-32); TOTAL PROTEIN 6.1 G/DL (6.4-8.2); eGFR 26 ML/MIN
[2018-04-16 16:59] LABS: ALANINE AMINOTRANSFERASE 1072 U/L (12-78)
[2018-04-16 17:00] LABS: ASPARTATE AMINO TRANSFERASE 3631 U/L (10-37)
[2018-04-16] MEDS: insulin glargine (Lantus) pen - multi-dose SQ SCH (19:36)
[2018-04-16] MEDS: fluconazole-Diflucan 100MG/NS 50 ML IV SCH (20:51)
[2018-04-16] MEDS: levoFLOXACIN-Levaquin 250mg/D5 50 ML IV SCH (21:32)
[2018-04-16 23:54] LABS: HEMATOCRIT 29.2 % (35.0-45.0); HEMOGLOBIN 9.9 g/dl (12.0-16.0); MEAN CORPUSCULAR HEMOGLOBIN 32.9 PG (27.0-31.0); MEAN CORPUSCULAR HGB CONC 34.1 % (33.0-36.5); MEAN CORPUSCULAR VOLUME 96.6 FL (78-98); MEAN PLATELET VOLUME 8.9 FL (7.4-10.4); PLATELET COUNT 67 X10'3 (140-440); RED BLOOD COUNT 3.02 X10'6 (4.20-5.60); RED CELL DISTRIBUTION WIDTH 14.7 % (11.5-14.5)
[2018-04-16 23:59] LABS: WHITE BLOOD COUNT 36.7 X10'3 (4.5-11.0)
[2018-04-17] VITALS (24 sets, daily range): BP systolic 95–144; BP diastolic 40–57
[2018-04-17 00:15] LABS: ALANINE AMINOTRANSFERASE 869 U/L (12-78); ALBUMIN 4.5 G/DL (3.4-5.0); ALBUMIN/GLOBULIN RATIO 2.6 (1.1-1.5); ALKALINE PHOSPHATASE 190 IU/L (46-116); ANION GAP 14 (8-16); BILIRUBIN,TOTAL 2.4 MG/DL (0.1-1.0); BLOOD UREA NITROGEN 28 MG/DL (7-18); BUN/CREATININE RATIO 16.1 (6.6-38.0); CALCIUM 10.5 MG/DL (8.5-10.1); CHLORIDE 98 MMOL/L (99-107); CREATININE 1.74 MG/DL (0.40-0.90); GLUCOSE 133 MG/DL (70-104); SODIUM 137 MMOL/L (135-145); TOTAL CARBON DIOXIDE 24.9 MMOL/L (24-32); TOTAL PROTEIN 6.2 G/DL (6.4-8.2); eGFR 28 ML/MIN
[2018-04-17 00:30] LABS: ASPARTATE AMINO TRANSFERASE 2628 U/L (10-37)
[2018-04-17] MEDS ORDERED: SODIUM PHOSPHATE IN D5W 250 ML IV ONE (01:24)
[2018-04-17] MEDS: insulin regular, human vial - multi-dose SQ SCH ×4 (01:50→19:44)
[2018-04-17] MEDS: hydrocortisone sod succ/PF 100mg/2ml inj. IV SCH ×4 (01:57→19:33)
[2018-04-17] MEDS: mineral oil/petrolatum ophthal oint EACHEYE SCH ×4 (01:58→19:33)
[2018-04-17] MEDS: sodium phosphate inj. 30 MMOL in normal saline 250ml IV soln 250 ML IV PRN (02:03)
[2018-04-17] MEDS: VANCOMYCIN LEVEL IV SCH (02:09)
[2018-04-17] MEDS: Duosol 4k/NO Calcium 5,000 ML HE SCH ×5 (03:10→18:50)
[2018-04-17 03:36] LABS: ABG BASE EXCESS 0.6 mmol/L (-2.0-3.0); ABG HCO3 24.2 mmol/L (22.0-26.0); ABG OXYGEN SATURATION 96.9 % (95-98); ABG PCO2 (T) 34.5 mmHg (32.0-45.0); ABG PH (T) 7.463 (7.350-7.450); ABG PO2 (T) 86.6 mmHg (83-108); FCOHb 0.3 % (0.5-1.5); FMetHb 0.1 % (0.3-1.12); FO2Hb 96.5 % (94-100); MINUTE VOLUME 8 L/min; PATIENT TEMPERATURE 36.6; PEEP 5 cm H2O; RESPIRATORY RATE 16 b/min; RESPIRATORY RATE (OBSERVED) 17 b/min; TIDAL VOLUME 400 mL; TOTAL HEMOGLOBIN 9.8 G/dl (12.0-16.0)
[2018-04-17] MEDS: citrate dextrose 1000ml IV sol 1,000 ML IV PRN ×4 (03:37→19:32)
[2018-04-17 04:04] LABS: BASOPHILS % (AUTO) 0 % (0-1); EOSINOPHILS % (AUTO) 0 % (0-6); HEMATOCRIT 26.3 % (35.0-45.0); HEMOGLOBIN 9.1 g/dl (12.0-16.0); LYMPHOCYTES # (AUTO) 0.6 X10'3 (1.1-4.8); LYMPHOCYTES % (AUTO) 1.6 % (21-51); MEAN CORPUSCULAR HEMOGLOBIN 33.2 PG (27.0-31.0); MEAN CORPUSCULAR HGB CONC 34.7 % (33.0-36.5); MEAN CORPUSCULAR VOLUME 95.6 FL (78-98); MEAN PLATELET VOLUME 7.9 FL (7.4-10.4); MONOCYTES # (AUTO) 0.9 X10'3 (0-0.9); MONOCYTES % (AUTO) 2.4 % (2-12); NEUTROPHILS # (AUTO) 33.8 X10'3 (1.8-7.7); PLATELET COUNT 63 X10'3 (140-440); RED BLOOD COUNT 2.75 X10'6 (4.20-5.60); RED CELL DISTRIBUTION WIDTH 15.3 % (11.5-14.5)
[2018-04-17 04:08] LABS: WHITE BLOOD COUNT 35.2 X10'3 (4.5-11.0)
[2018-04-17 04:17] LABS: INR 1.9 INR; PROTHROMBIN TIME 18.8 SECONDS (9.0-12.0)
[2018-04-17 04:30] LABS: ALANINE AMINOTRANSFERASE 760 U/L (12-78); ALBUMIN 4.9 G/DL (3.4-5.0); ALBUMIN/GLOBULIN RATIO 3.1 (1.1-1.5); ALKALINE PHOSPHATASE 175 IU/L (46-116); ANION GAP 16 (8-16); BILIRUBIN,TOTAL 2.3 MG/DL (0.1-1.0); BLOOD UREA NITROGEN 27 MG/DL (7-18); BUN/CREATININE RATIO 16.3 (6.6-38.0); CALCIUM 10.8 MG/DL (8.5-10.1); CHLORIDE 96 MMOL/L (99-107); CREATININE 1.66 MG/DL (0.40-0.90); GLUCOSE 135 MG/DL (70-104); PHOSPHORUS 1.8 MG/DL (2.3-4.5); POTASSIUM 3.7 MMOL/L (3.5-5.1); SODIUM 138 MMOL/L (135-145); TOTAL CARBON DIOXIDE 26.1 MMOL/L (24-32); TOTAL PROTEIN 6.5 G/DL (6.4-8.2); VANCOMYCIN,RANDOM 7.3 UG/ML; eGFR 29 ML/MIN
[2018-04-17 04:37] LABS: ASPARTATE AMINO TRANSFERASE 1837 U/L (10-37)
[2018-04-17 04:44] LABS: PARTIAL THROMBOPLASTIN TIME 81 SECONDS (22-32)
[2018-04-17] MEDS: NS IV PRN ×2 (05:11→18:49)
[2018-04-17] MEDS: CALCIUM GLUCONATE IV PRN ×2 (05:11→18:49)
[2018-04-17] MEDS: fat emulsion IV 100 ML, MVI, adult No.4 with vit. K 10 ML, Trace element-5 inj. 1 ML in... IV SCH ×8 (05:48→21:44)
[2018-04-17 06:11] LABS: TOTAL CELLS COUNTED 100
[2018-04-17 06:12] LABS: ANISOCYTOSIS 1+; PLATELET ESTIMATE DECREASED; TARGET CELLS 1+
[2018-04-17] MEDS ORDERED: vancomycin/NS 1 GM ADD-VANTAGE 250 ML IV ONE (07:05)
[2018-04-17] MEDS: lactobacillus rhamnosus 10,000 MMU CELLS/CAPSULE PO SCH ×2 (07:42→19:33)
[2018-04-17] MEDS: pantoprazole 40 MG vial IV SCH (07:42)
[2018-04-17] MEDS: metroNIDAZOLE-Flagyl 500mg/NS 100 ML IV SCH ×2 (07:43→19:32)
[2018-04-17] MEDS: albumin (human) 25% 100 ML IV solution IV SCH ×2 (07:45→16:23)
[2018-04-17] MEDS: K, MAG and/or Phos replacement - Verify level? MC SCH (08:00)
[2018-04-17 10:24] LABS: HEMATOCRIT 26.1 % (35.0-45.0); HEMOGLOBIN 8.9 g/dl (12.0-16.0); MEAN CORPUSCULAR HGB CONC 34.3 % (33.0-36.5); MEAN CORPUSCULAR VOLUME 96.1 FL (78-98); MEAN PLATELET VOLUME 8.3 FL (7.4-10.4); PLATELET COUNT 60 X10'3 (140-440); RED BLOOD COUNT 2.71 X10'6 (4.20-5.60); RED CELL DISTRIBUTION WIDTH 15.2 % (11.5-14.5)
[2018-04-17 10:34] LABS: WHITE BLOOD COUNT 37.4 X10'3 (4.5-11.0)
[2018-04-17 10:46] LABS: ALANINE AMINOTRANSFERASE 666 U/L (12-78); ALBUMIN 5.3 G/DL (3.4-5.0); ALBUMIN/GLOBULIN RATIO 3.1 (1.1-1.5); ALKALINE PHOSPHATASE 171 IU/L (46-116); ANION GAP 13 (8-16); BILIRUBIN,TOTAL 2.4 MG/DL (0.1-1.0); BLOOD UREA NITROGEN 28 MG/DL (7-18); BUN/CREATININE RATIO 20.1 (6.6-38.0); CALCIUM 10.3 MG/DL (8.5-10.1); CHLORIDE 97 MMOL/L (99-107); CREATININE 1.39 MG/DL (0.40-0.90); GLUCOSE 127 MG/DL (70-104); MAGNESIUM 1.7 MG/DL (1.5-2.4); POTASSIUM 3.4 MMOL/L (3.5-5.1); SODIUM 137 MMOL/L (135-145); TOTAL CARBON DIOXIDE 26.9 MMOL/L (24-32); eGFR 36 ML/MIN
[2018-04-17 10:47] LABS: ASPARTATE AMINO TRANSFERASE 1447 U/L (10-37)
[2018-04-17] MEDS ORDERED: potassium Cl 40MEQ/250ML bag 250 ML IV PRN (12:10)
[2018-04-17 13:48] LABS: PHOSPHORUS 2.3 MG/DL (2.3-4.5)
[2018-04-17] MEDS: normal saline 1000ml 1,000 ML IV SCH (13:50)
[2018-04-17] MEDS ORDERED: calcium chloride inj. 10,000 MG in normal saline 500ml IV soln 400 ML IV PRN (16:00)
[2018-04-17 16:31] LABS: HEMATOCRIT 29.7 % (35.0-45.0); MEAN CORPUSCULAR HEMOGLOBIN 32.7 PG (27.0-31.0); MEAN CORPUSCULAR HGB CONC 33.7 % (33.0-36.5); MEAN CORPUSCULAR VOLUME 97.1 FL (78-98); PLATELET COUNT 55 X10'3 (140-440); RED BLOOD COUNT 3.06 X10'6 (4.20-5.60); RED CELL DISTRIBUTION WIDTH 15.3 % (11.5-14.5)
[2018-04-17 16:32] LABS: MEAN PLATELET VOLUME 8.1 FL (7.4-10.4)
[2018-04-17 16:35] LABS: WHITE BLOOD COUNT 42.7 X10'3 (4.5-11.0)
[2018-04-17 17:39] LABS: ALANINE AMINOTRANSFERASE 652 U/L (12-78); ALBUMIN/GLOBULIN RATIO 2.9 (1.1-1.5); ALKALINE PHOSPHATASE 202 IU/L (46-116); ANION GAP 15 (8-16); BILIRUBIN,TOTAL 2.4 MG/DL (0.1-1.0); BLOOD UREA NITROGEN 32 MG/DL (7-18); BUN/CREATININE RATIO 21.3 (6.6-38.0); CALCIUM 10.8 MG/DL (8.5-10.1); CHLORIDE 98 MMOL/L (99-107); GLUCOSE 147 MG/DL (70-104); MAGNESIUM 2.8 MG/DL (1.5-2.4); POTASSIUM 4.2 MMOL/L (3.5-5.1); SODIUM 137 MMOL/L (135-145); TOTAL CARBON DIOXIDE 23.9 MMOL/L (24-32); TOTAL PROTEIN 6.7 G/DL (6.4-8.2); eGFR 33 ML/MIN
[2018-04-17 17:40] LABS: ASPARTATE AMINO TRANSFERASE 1141 U/L (10-37)
[2018-04-17] MEDS: insulin glargine (Lantus) pen - multi-dose SQ SCH (19:45)
[2018-04-17] MEDS: fluconazole-Diflucan 100MG/NS 50 ML IV SCH (21:19)
[2018-04-17] MEDS: levoFLOXACIN-Levaquin 250mg/D5 50 ML IV SCH (21:44)
[2018-04-17 21:56] LABS: HEMATOCRIT 29.1 % (35.0-45.0); HEMOGLOBIN 9.9 g/dl (12.0-16.0); MEAN CORPUSCULAR HEMOGLOBIN 32.7 PG (27.0-31.0); MEAN CORPUSCULAR VOLUME 96.1 FL (78-98); MEAN PLATELET VOLUME 8.2 FL (7.4-10.4); PLATELET COUNT 51 X10'3 (140-440); RED BLOOD COUNT 3.03 X10'6 (4.20-5.60); RED CELL DISTRIBUTION WIDTH 15.2 % (11.5-14.5)
[2018-04-17 22:10] LABS: ALANINE AMINOTRANSFERASE 593 U/L (12-78); ALBUMIN 5.4 G/DL (3.4-5.0); ALKALINE PHOSPHATASE 206 IU/L (46-116); ANION GAP 15 (8-16); ASPARTATE AMINO TRANSFERASE 921 U/L (10-37); BILIRUBIN,TOTAL 2.5 MG/DL (0.1-1.0); BLOOD UREA NITROGEN 33 MG/DL (7-18); BUN/CREATININE RATIO 24.6 (6.6-38.0); CALCIUM 10.6 MG/DL (8.5-10.1); CHLORIDE 97 MMOL/L (99-107); CREATININE 1.34 MG/DL (0.40-0.90); GLUCOSE 139 MG/DL (70-104); MAGNESIUM 2.2 MG/DL (1.5-2.4); PHOSPHORUS 3.6 MG/DL (2.3-4.5); POTASSIUM 3.6 MMOL/L (3.5-5.1); SODIUM 136 MMOL/L (135-145); TOTAL CARBON DIOXIDE 24.3 MMOL/L (24-32); TOTAL PROTEIN 7.2 G/DL (6.4-8.2); eGFR 38 ML/MIN
[2018-04-17 22:36] LABS: WHITE BLOOD COUNT 42.3 X10'3 (4.5-11.0)
[2018-04-17] MEDS ORDERED: potassium Cl 40MEQ/250ML bag 250 ML IV ONE (22:51)
[2018-04-17] MEDS: potassium Cl 20mEq/100mL bag 100 ML IV PRN (23:01)
[2018-04-17 23:26] LABS: INR 1.4 INR; PARTIAL THROMBOPLASTIN TIME 62 SECONDS (22-32); PROTHROMBIN TIME 14.6 SECONDS (9.0-12.0)
[2018-04-18] VITALS (19 sets, daily range): BP systolic 103–146; BP diastolic 50–60
[2018-04-18] MEDS: albumin (human) 25% 100 ML IV solution IV SCH ×3 (00:12→16:00)
[2018-04-18] MEDS: citrate dextrose 1000ml IV sol 1,000 ML IV PRN (00:36)
[2018-04-18] MEDS: Duosol 4k/NO Calcium 5,000 ML HE SCH ×4 (01:08→09:39)
[2018-04-18] MEDS: hydrocortisone sod succ/PF 100mg/2ml inj. IV SCH ×3 (01:55→14:00)
[2018-04-18] MEDS: mineral oil/petrolatum ophthal oint EACHEYE SCH ×3 (01:57→14:00)
[2018-04-18] MEDS: insulin regular, human vial - multi-dose SQ SCH ×2 (01:57→08:50)
[2018-04-18] MEDS: VANCOMYCIN LEVEL IV SCH (02:05)
[2018-04-18 03:31] LABS: ABG BASE EXCESS -0.6 mmol/L (-2.0-3.0); ABG HCO3 23.3 mmol/L (22.0-26.0); ABG PCO2 (T) 34.6 mmHg (32.0-45.0); ABG PH (T) 7.443 (7.350-7.450); ABG PO2 (T) 83.3 mmHg (83-108); FCOHb 0.3 % (0.5-1.5); FMetHb 0.1 % (0.3-1.12); FO2Hb 96.6 % (94-100); MINUTE VOLUME 9 L/min; PATIENT TEMPERATURE 36.5; PEEP 5 cm H2O; RESPIRATORY RATE 16 b/min; RESPIRATORY RATE (OBSERVED) 20 b/min; TIDAL VOLUME 400 mL; TOTAL HEMOGLOBIN 10.9 G/dl (12.0-16.0)
[2018-04-18 04:02] LABS: BASOPHILS % (AUTO) 0 % (0-1); EOSINOPHILS % (AUTO) 0 % (0-6); HEMOGLOBIN 10.2 g/dl (12.0-16.0); LYMPHOCYTES # (AUTO) 0.8 X10'3 (1.1-4.8); LYMPHOCYTES % (AUTO) 1.7 % (21-51); MEAN CORPUSCULAR HEMOGLOBIN 33.3 PG (27.0-31.0); MEAN PLATELET VOLUME 8.8 FL (7.4-10.4); MONOCYTES # (AUTO) 1.2 X10'3 (0-0.9); MONOCYTES % (AUTO) 2.7 % (2-12); NEUTROPHILS # (AUTO) 42.4 X10'3 (1.8-7.7); NEUTROPHILS % (AUTO) 95.6 % (42-75); RED BLOOD COUNT 3.07 X10'6 (4.20-5.60); RED CELL DISTRIBUTION WIDTH 15.2 % (11.5-14.5)
[2018-04-18 04:06] LABS: WHITE BLOOD COUNT 44.3 X10'3 (4.5-11.0)
[2018-04-18 04:08] LABS: PLATELET COUNT 45 X10'3 (140-440)
[2018-04-18 04:13] LABS: INR 1.4 INR; PARTIAL THROMBOPLASTIN TIME 63 SECONDS (22-32); PROTHROMBIN TIME 14.8 SECONDS (9.0-12.0)
[2018-04-18 04:16] LABS: ALANINE AMINOTRANSFERASE 565 U/L (12-78); ALBUMIN 5.9 G/DL (3.4-5.0); ALBUMIN/GLOBULIN RATIO 3.1 (1.1-1.5); ALKALINE PHOSPHATASE 208 IU/L (46-116); ANION GAP 13 (8-16); ASPARTATE AMINO TRANSFERASE 740 U/L (10-37); BILIRUBIN,TOTAL 2.6 MG/DL (0.1-1.0); BLOOD UREA NITROGEN 35 MG/DL (7-18); BUN/CREATININE RATIO 28.5 (6.6-38.0); CALCIUM 10.4 MG/DL (8.5-10.1); CHLORIDE 99 MMOL/L (99-107); CREATININE 1.23 MG/DL (0.40-0.90); GLUCOSE 131 MG/DL (70-104); MAGNESIUM 2.1 MG/DL (1.5-2.4); PHOSPHORUS 1.9 MG/DL (2.3-4.5); POTASSIUM 4.1 MMOL/L (3.5-5.1); PREALBUMIN 12.7 MG/DL (19-36); SODIUM 137 MMOL/L (135-145); TOTAL PROTEIN 7.8 G/DL (6.4-8.2); TRIGLYCERIDES 46 MG/DL (20-135); VANCOMYCIN,RANDOM 10.9 UG/ML; eGFR 41 ML/MIN
[2018-04-18 06:21] LABS: HOWELL-JOLLY BODIES RN; PLATELET ESTIMATE DECREASED; TOTAL CELLS COUNTED 100
[2018-04-18] MEDS: pantoprazole 40 MG vial IV SCH (07:34)
[2018-04-18] MEDS: metroNIDAZOLE-Flagyl 500mg/NS 100 ML IV SCH (07:34)
[2018-04-18] MEDS: sodium phosphate inj. 30 MMOL in normal saline 250ml IV soln 250 ML IV PRN (07:34)
[2018-04-18] MEDS: lactobacillus rhamnosus 10,000 MMU CELLS/CAPSULE PO SCH (07:41)
[2018-04-18] MEDS ORDERED: methylnaltrexone br 12mg/0.6ml inj***SubQ only SQ SCH (08:00)
[2018-04-18] MEDS: K, MAG and/or Phos replacement - Verify level? MC SCH (08:00)
[2018-04-18] MEDS ORDERED: vancomycin/NS 1 GM ADD-VANTAGE 250 ML IV ONE (08:05)
[2018-04-18 10:36] LABS: HEMATOCRIT 32.8 % (35.0-45.0); MEAN CORPUSCULAR HEMOGLOBIN 32.9 PG (27.0-31.0); MEAN CORPUSCULAR HGB CONC 33.6 % (33.0-36.5); MEAN PLATELET VOLUME 8.5 FL (7.4-10.4); PLATELET COUNT 52 X10'3 (140-440); RED BLOOD COUNT 3.35 X10'6 (4.20-5.60); RED CELL DISTRIBUTION WIDTH 15.8 % (11.5-14.5)
[2018-04-18 10:46] LABS: WHITE BLOOD COUNT 47.6 X10'3 (4.5-11.0)
[2018-04-18 10:53] LABS: ALANINE AMINOTRANSFERASE 541 U/L (12-78); ALBUMIN 5.5 G/DL (3.4-5.0); ALBUMIN/GLOBULIN RATIO 2.8 (1.1-1.5); ALKALINE PHOSPHATASE 221 IU/L (46-116); ANION GAP 14 (8-16); ASPARTATE AMINO TRANSFERASE 623 U/L (10-37); BILIRUBIN,TOTAL 2.7 MG/DL (0.1-1.0); BLOOD UREA NITROGEN 38 MG/DL (7-18); CALCIUM 9.9 MG/DL (8.5-10.1); CHLORIDE 100 MMOL/L (99-107); CREATININE 1.31 MG/DL (0.40-0.90); GLUCOSE 118 MG/DL (70-104); MAGNESIUM 1.8 MG/DL (1.5-2.4); POTASSIUM 3.6 MMOL/L (3.5-5.1); SODIUM 138 MMOL/L (135-145); TOTAL CARBON DIOXIDE 24.2 MMOL/L (24-32); TOTAL PROTEIN 7.5 G/DL (6.4-8.2); eGFR 38 ML/MIN
[2018-04-18] MEDS ORDERED: morphine 10mg/0.5ml (conc. morphine) oral syringe PO PRN (12:35)
[2018-04-18] MEDS: morphine 10mg/ml inj. IV PRN (20:51)
[2018-04-19 07:08] VITALS: BP 103/49
[2018-04-19] MEDS: morphine 10mg/ml inj. IV PRN ×4 (07:59→21:35)
[2018-04-19 10:25] VITALS: BP 77/39
[2018-04-19 12:49] VITALS: BP 77/39
[2018-04-19 18:00] VITALS: BP 67/34
[2018-04-20] MEDS: morphine 10mg/ml inj. IV PRN ×5 (01:30→12:34)
[2018-04-20 07:06] VITALS: BP 76/27
[2018-04-20] MEDS: LORazepam 2 mg/ml vial IV PRN ×2 (11:15→13:25)
== END 2018-04-20 16:49 | disposition expired | DRG 853 ==
LOC: ER 10:18 → ICU 2S 15:56 → SUR 3N 04-19 12:45
PROVIDERS: ADMIT Internal Medicine Critical Care Medicine; ATTEND Internal Medicine Critical Care Medicine
PROC: 02HV33Z Insertion of Infusion Device into Superior Vena Cava, Percutaneous Approach (ICD-10-PCS; 2018-04-13)
PROC: B548ZZA Ultrasonography of Superior Vena Cava, Guidance (ICD-10-PCS; 2018-04-13)
PROC: 5A1955Z Respiratory Ventilation, Greater than 96 Consecutive Hours (ICD-10-PCS; 2018-04-13)
PROC: 0DBB0ZZ Excision of Ileum, Open Approach (ICD-10-PCS; principal; 2018-04-13 13:45)
PROC: 5A1D90Z Performance of Urinary Filtration, Continuous, Greater than 18 hours Per Day (ICD-10-PCS; 2018-04-15)
PROC: 5A1D90Z Performance of Urinary Filtration, Continuous, Greater than 18 hours Per Day (ICD-10-PCS; 2018-04-17)
DX: A41.9 Sepsis, unspecified organism (principal); K55.029 Acute infarction of small intestine, extent unspecified; J96.90 Respiratory failure, unspecified, unspecified whether with hypoxia or hypercapnia; K63.1 Perforation of intestine (nontraumatic); K56.609 Unspecified intestinal obstruction, unspecified as to partial versus complete obstruction; N17.9 Acute kidney failure, unspecified; E86.0 Dehydration; K44.9 Diaphragmatic hernia without obstruction or gangrene; R91.1 Solitary pulmonary nodule; K59.00 Constipation, unspecified; I10 Essential (primary) hypertension; R10.0 Acute abdomen; B95.5 Unspecified streptococcus as the cause of diseases classified elsewhere; B96.7 Clostridium perfringens [C. perfringens] as the cause of diseases classified elsewhere; Z66 Do not resuscitate; Z51.5 Encounter for palliative care; Z88.0 Allergy status to penicillin; Z79.82 Long term (current) use of aspirin; Z79.899 Other long term (current) drug therapy
CPT/HCPCS: 36415; 36600; 71045; 74018; 74174; 80053; 80069; 80202; 81001; 82272; 82330; 82570; 82803; 82810; 82948; 83036; 83605; 83690; 83735; 84100; 84134; 84145; 84156; 84300; 84478; 85018; 85025; 85027; 85610; 85730; 87040; 87070; 87075; 87076; 87077; 87185; 87186; 88307; 90935; 93005; 94002; 94003; 94760; 96361; 96365; 96375; 99291; A4315; A6213; A6253; A6255; A6258; A6449; A7000; A7526; C1758; C9113; J0610; J0692; J1450; J1720; J1815; J1956; J2060; J2250; J2270; J2405; J3370; J3475; J3480; J3490; J7030; J7040; J7060; J7120; P9047; Q9967